=== PATIENT | female | born 1950 | race Caucasian/White ===

== ENCOUNTER 2017-06-16 09:58 | Emergency (ER) | payer MEDICARE, BC | END 2017-06-16 10:54 | disposition home or self-care (01) | LOC: SCSER 09:58 | DX: T78.40XA Allergy, unspecified, initial encounter (principal); I10 Essential (primary) hypertension; Z87.891 Personal history of nicotine dependence; Z79.899 Other long term (current) drug therapy | CPT/HCPCS: 99282 ==

== ENCOUNTER 2018-03-21 08:35 | Observation (INO) | payer MEDICARE, BC ==
--- NOTE | 2018-03-21 09:00 | CT ---
CT HEAD NONCONTRAST: Date: 03/21/18 INDICATION: Difficulty remembering names, visual disturbance. No prior comparison. FINDINGS: There is no evidence of intracranial hemorrhage, mass effect, midline shift, or ventriculomegaly. The imaged paranasal sinuses reveal minimal mucosal thickening. IMPRESSION: No acute intracranial hemorrhage or mass effect. Telephone called findings placed to ER physician, Chauncey Lawrence, at 0845 hours on 03/21/18. CODE CR. POS: OJSE
[2018-03-21 09:21] LABS: #Basophils 0.1 thou/uL (0.0-0.2); #Eosinphils 0.2 thou/uL (0.0-0.7); #Lymphocytes 3.1 thou/uL (1.20-3.40); #Monocytes 0.6 thou/uL (0.11-0.59); #Neutrophils 4.5 thou/uL (1.40-6.50); %Eosinophils 2.3 % (0.0-10.0); %Lymphocytes 36.4 % (21.0-51.0); %Monocytes 7.1 % (0.0-10.0); %Neutrophils 53.1 % (42.0-75.0); Hemoglobin 15.8 g/dL (12.0-16.0); Mean Corpuscular HGB CONC 31.8 g/dL (32.0-36.0); Mean Corpuscular Hemoglobin 30.4 pg (27.0-31.0); Mean Corpuscular Volume 95.7 fL (78.0-98.0); Mean Platelet Volume 7.9 fL (7.4-10.4); Platelet Count 219 thou/uL (130-400); RBC Distribution Width 12.5 % (11.5-14.5); Red Blood Cell (RBC) Count 5.18 mill/uL (4.20-5.40); White Blood Cell (WBC) Count 8.5 thou/uL (4.8-10.8)
[2018-03-21] MEDS ORDERED: Nitroglycerin 2% Ointment 1 INCH/1 GM Packet ONE (09:42)
[2018-03-21 09:43] LABS: Bilirubin Negative (Negative); Blood, Urine Negative (Negative); Clarity CLEAR (Clear); Glucose, Urine (Dipstick) Negative (Negative); Leukocyte Negative (Negative); Nitrite Negative (Negative); Protein, Urine (Dipstick) Negative (Neg-Trace); Specific Gravity, Urine 1.008 (1.002-1.036); Urobilinogen 0.2 mg/dL (0.2-1.0); pH, Urine 5.5 (5.0-9.0)
[2018-03-21 09:44] LABS: ALT (SGPT) 21 U/L (8-55); AST (SGOT) 22 U/L (5-34); Albumin 4.4 g/dL (3.4-4.8); Alkaline Phosphatase 74 U/L (40-150); Anion Gap 13 mmol/L (10-20); BUN (Urea Nitrogen) 18 mg/dL (9.8-20.1); Bilirubin, Total 0.3 mg/dL (0.2-1.2); Calc. Creatinine Clearance 0 mL/min (70-130); Calcium 9.5 mg/dL (7.8-10.44); Carbon Dioxide 25 mmol/L (23-31); Chloride 104 mmol/L (98-107); Estimated GFR-MDRD 76; Globulin 3.2 g/dL (2.4-3.5); Glucose 73 mg/dL (80-115); Potassium 3.6 mmol/L (3.5-5.1); Protein, Total 7.6 g/dL (6.0-8.3); Sodium 138 mmol/L (136-145)
[2018-03-21 09:48] LABS: Troponin I Less than 0.010 ng/mL (< 0.028)
--- NOTE | 2018-03-21 10:26 | RAD ---
PORTABLE CHEST 1 VIEW: Date: 03/21/18 Time: 0954 hours HISTORY: Generalized weakness, elevated blood pressure. FINDINGS: Comparison made with exam of 07/08/13. The heart size is normal. The lungs are well expanded without focal areas of consolidation, pneumotho races, or pleural effusions. IMPRESSION: No radiographic evidence of acute cardiopulmonary process. POS: C
[2018-03-21] MEDS ORDERED: Acetaminophen 500 MG TAB ONE (11:40)
--- NOTE | 2018-03-21 12:36 | HP ---
DATE OF ADMISSION: 03/21/2018 CHIEF COMPLAINT: Memory loss and visual flashing lights, rule out TIA. 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 She did not feel right. She felt funny, strange after she came to school. She dropped the phone and she was not able to recall kids' names. Her vision was fine. Quirino jewell had a headache which started in the occipital area and in the neck. She had similar episodes a few years back when she had some memory issues and numbness and tingling and since she was on cont rol pills at this time, it was stopped and everything got better. This time, she was brought to the emergency room for further evaluation of her problem. Current condition during my visit is that she is back to normal. She is able to recall everything properly and she does not have any flashing ligh ts. PAST MEDICAL HISTORY: Positive for, 1. Migraine sporadically, maybe once a year. 2. Hypertension. 3. Osteoarthritis. PAST SURGICAL HISTORY: 1. Hiatal hernia repair by Dr. Lema. 2. Tubal ligation. 3. Hysterectomy. 4. Cholecystectomy. CURRENT MEDICATIONS: Lisinopril 10 mg at bedtime, estradiol 0.5 mg tablets half a tablet at bedtime, alprazolam 0.5 mg at bedtime, calcium and magnesium over the counter. FAMILY HISTORY: She has history of hereditary brain aneurysm. She had several CAT scans done in her 50s, but she has several cousins who passed because of aneurysms, only one person out of those who w ere found to have those aneurysms is still alive. Her father had hypertension and he passed at the a ge of 86. Also, he had [place]. Her mother is still alive. She has atrial fibrillation and she is 93 ye ars old. ALLERGIES: None. SOCIAL HISTORY: She smoked when she was young, but this was long time ago. She does not drink alcoh ol, only sporadically. She does not use any illicit drugs. REVIEW OF SYSTEMS: CONSTITUTIONAL: Negative for fever and chills. EYES: Positive for flashing lights during the episode. No double vision. ENT: Negative for epistaxis and nasal congestion. CARDIOVASCULAR: Negative for chest pain and palpitations. RESPIRATORY: Negative for shortness of breath. Positive for some cough recently. She had upper res piratory tract infection/bronchitis. She was treated with Medrol Dosepak and inhalers. GENITOURINARY: Negative for hematuria and dysuria. GI: Negative for nausea and vomiting. DERM: Negative for erythema or rash. NEUROLOGIC: Positive for above. Negative for any focal deficits. PSYCHIATRIC: Negative for homicidal or suicidal ideations. HEMOLYMPHATIC: Negative for easy bruising and clotting abnormalities. PHYSICAL EXAMINATION: GENERAL: She is not in any distress during my visit. She is resting comfortably in the bed. VITAL SIGNS: Blood pressure is 166/81, pulse is 59, respiratory rate is 16, pulse oximetry is 96% on room air. HEENT: Head is atraumatic, normocephalic. Eyes are PERRLA. Sclerae nonicteric. Oral mucosa is rob[address] st. NECK: Supple. No lymphadenopathy. Thyroid is not palpable. LUNGS: Clear. HEART: S1, S2 normal, no S3, no S4, no murmur. ABDOMEN: Soft, nontender. Bowel sounds are present, no organomegaly. EXTREMITIES: No clubbing, cyanosis, or edema. NEUROLOGIC: She is alert and oriented x4. There is no any sensorimotor deficits present. Cranial n erves are intact. Extraocular movements within normal limits. Visual deluca within normal limits. Diadochokinesia is normal. LABORATORY AND X-RAY FINDINGS: Showed white count of 8.5, hemoglobin 15.8, hematocrit 49.6, platelet count is 219. The rest of CBC within normal limits. Chemistry showed only one abnormal part which is glucose which is 73. The rest is within normal limits. Urinalysis within normal limits. CT of t he brain was done without contrast, did not show any abnormalities. Also, chest x-ray was done witho ut any abnormalities, both tests were examined by me personally. Electrocardiogram showed a sinus br adycardia at 59 beats per minute with some criteria for LVH. No ST segment depression or elevation. IMPRESSION: 1. Flashing lights with episode of memory loss, transient, rule out transient ischemic attack. CT o f the brain is negative. The patient is back to her normal. She will get additional aspirin 325 mg right now. 2. Hypertension, slightly elevated blood pressure. 3. History of migraine headaches in the past, now very sporadically, maybe once a year. 4. Osteoarthritis in both knees. 5. Recent upper respiratory tract infection/bronchitis. PLAN: Admission for observation to stroke unit. Condition is fair. Activity, bed rest and bathroom privileges. IV Hep-Lock. MRI and MRA of the brain. We will continue her lisinopril, citalopram, a lprazolam. We are going to hold her estradiol. I will continue her methylprednisolone 4 mg pack. S he is prison through and the patient will be on deep venous thrombosis prophylaxis with 40 mg of sub cutaneous Lovenox every 24 hours and SCDs. She will have echocardiogram done.
[2018-03-21] MEDS ORDERED: Gadobenate Dimeglumine 529 MG/1 ML (20ML VIAL) ONE (16:34)
--- NOTE | 2018-03-21 17:24 | MRI ---
MRI OF BRAIN WITH AND WITHOUT IV CONTRAST: 03/21/18 HISTORY: Memory loss with visual disturbances. TIA. There are a few scattered punctate signal abnormalities in the subcortical white matter which are non specific and of uncertain clinical significance. The findings could potentially be related to mild chronic small vessel ischemic changes. There is no evidence of an acute infarction. No abnormal areas of enhancement are seen after the administration of intravenous contrast. The septum pellucidum and third ventricle in midline. The ventricular system is normal in size, shape and position. Mucosal thickening is seen within the right maxillary antrum as well as involving a fe w ethmoidal air cells and right frontal sinus. The orbits and remainder of the skull base have a norm al MRI appearance. IMPRESSION: No acute intracranial abnormalities demonstrated. POS: JOSE
--- NOTE | 2018-03-21 17:28 | MRI ---
NONCONTRAST MRA BRAIN WITH 3D RECONSTRUCTIONS: 03/21/18 HISTORY: TIA. Patient with memory loss and visual disturbances. FINDINGS: Distal bilateral internal carotid arteries are patent. Bilateral middle cerebral anterior cerebral ar teries are patent. The distal bilateral vertebral arteries, basilar arteries as well as posterior cer ebral arteries are patent. No branch occlusion or focal stenosis is seen. There does appear to be sli ght atherosclerotic irregularity involving the most distal branch of the right posterior cerebral art fitz. No aneurysm is seen within the limitation of the technique of this exam. IMPRESSION: No significant focal stenosis or branch occlusion is seen involving the [place] or vertebrob asilar system. There is suggestion of mild atherosclerotic irregularity involving the most distal br anch of the right posterior cerebral artery. POS: JOSE
[2018-03-21 18:04] VITALS: BMI 27.1
[2018-03-22] MEDS ORDERED: Enoxaparin Sodium 40 MG/0.4 ML SYRINGE SC SCH (09:00)
[2018-03-22] MEDS ORDERED: Lisinopril 10 MG TAB PO SCH ×2 (09:00→21:00)
[2018-03-22 11:36] VITALS: BP 144/69; TEMP 98
--- NOTE | 2018-03-22 13:52 | DIS ---
DATE OF ADMISSION: 03/21/2018 DATE OF DISCHARGE: 03/22/2018 FINAL DIAGNOSES: 1. Questionable transient ischemic attack versus migraine episode, acute cerebrovascular accident wa s ruled out. 2. Hypertension, on medications. 3. History of migraine headaches in the past. 4. Osteoarthritis. 5. Recent upper respiratory tract infection/bronchitis. 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 She did not feel right, felt funny and strange. After she came to school she dropped the phone and she was not able to recall kids' names, but her vision was fine. She had a headache which started in the occipital area and in the neck. She had similar episodes a few years back and since she has a family history of brain aneurysms she had multiple CT scans of the brain, but they did not show any abnormalities so in the emergency room, she was evaluated. Her vitals were within normal li mits. Blood pressure was slightly elevated at 166/81, but the rest was within normal limits. Her wh ite count was 8.5, hemoglobin 15.8, hematocrit 49.6, and platelet count 219. Glucose was 73, slightl y low. Urinalysis was within normal limits. CT of the brain was done without contrast and did not s how any abnormalities and chest x-ray was done. It did not show any abnormalities. Electrocardiogra m showed sinus bradycardia at 59 beats per minute with some criteria for LVH. There was not any ST s egment depression or elevation. The patient was placed on aspirin. IV Hep-Locked. She was continue d on her methylprednisolone 12 mg once a day. This was a Medrol Dosepak she was receiving for her br onchitis. She underwent MRI of the brain and MRA of the brain which did not show any significant abn ormalities. Echocardiogram showed a normal left ventricular ejection fraction at 55% -60%, normal si ze left atrium, normal left ventricle size, mild tricuspid regurgitation. There was not any thrombus in the cardiac chambers. Her blood pressure was slightly running on the high side and she was resta rted on her lisinopril, which improved her blood pressure. VITAL SIGNS: Blood pressure is 145/71, pulse is 80, temperature is 98.1, respirations 14 and pulse o ximetry 97% on room air. LUNGS: Clear. CARDIOVASCULAR: S1, S2 normal, no S3, no S4, no murmur. ABDOMEN: Soft, nontender, bowel sounds are present, no organomegaly. NEUROLOGIC: Intact. She is discharged home in good condition with recommendation to stay on low salt diet. ACTIVITY: As tolerated. The patient is going to make an appointment with Dr. Jacques, neurologist. She will call his office and set up appointment. Other medications at the time of discharge; famotidine 20 mg at bedtime, Coenzyme Q10 100 mg at bedti me, biotin 10,000 units once a day, aspirin 81 mg once a day, alprazolam 0.5 mg at bedtime p.r.n., E stradiol p.o. at bedtime, citalopram 20 mg once a day, multivitamin at bedtime, once a day. The patient was seen and examined before she is discharged and the discharge time is less than 30 min utes.
== END 2018-03-22 12:55 | disposition home or self-care (01) ==
LOC: ERS 08:35 → ERHOLD 11:44 → 2SE 14:11
PROVIDERS: ADMIT Internal Medicine; ATTEND Internal Medicine
DX: H53.8 Other visual disturbances (principal); G45.4 Transient global amnesia; G43.909 Migraine, unspecified, not intractable, without status migrainosus; M17.0 Bilateral primary osteoarthritis of knee; I10 Essential (primary) hypertension; Z87.891 Personal history of nicotine dependence; Z79.82 Long term (current) use of aspirin; Z79.899 Other long term (current) drug therapy
CPT/HCPCS: 70450; 70544; 70553; 71045; 80053; 81003; 82553; 82962; 84484; 85025; 93005; 93306; 96372; 99285; G0378 ×2; 36415; 36416; A9579; J1650

== ENCOUNTER 2018-11-05 10:49 | Emergency (ER) | payer MEDICARE, BC ==
--- NOTE | 2018-11-05 11:14 | RAD ---
CHEST 2 VIEWS: Date: 11/05/18 HISTORY: Fever, chest congestion, and productive cough for 4 days. COMPARISON: 05/02/17. FINDINGS: Heart size is normal. The lungs are clear. IMPRESSION: No acute intrathoracic disease. No evidence of pneumonia. Stable from prior study. POS: TPC
== END 2018-11-05 11:40 | disposition home or self-care (01) ==
LOC: SCSER 10:49
DX: R05 Cough (principal); I10 Essential (primary) hypertension; Z87.891 Personal history of nicotine dependence
CPT/HCPCS: 71046

== ENCOUNTER 2018-11-21 08:22 | Outpatient (CLI) | payer MEDICARE, BC ==
[2018-11-21 10:18] LABS: #Eosinphils 0.2 thou/uL (0.0-0.7); #Lymphocytes 1.9 thou/uL (1.20-3.40); #Monocytes 0.3 thou/uL (0.11-0.59); #Neutrophils 2.3 thou/uL (1.40-6.50); %Basophils 0.9 % (0.0-1.0); %Eosinophils 3.7 % (0.0-10.0); %Lymphocytes 40.6 % (21.0-51.0); %Monocytes 6.6 % (0.0-10.0); %Neutrophils 48.2 % (42.0-75.0); Hemoglobin 13.8 g/dL (12.0-16.0); Mean Corpuscular HGB CONC 31.8 g/dL (32.0-36.0); Mean Corpuscular Hemoglobin 30.9 pg (27.0-31.0); Mean Corpuscular Volume 97.1 fL (78.0-98.0); Mean Platelet Volume 8.4 fL (7.4-10.4); Platelet Count 221 thou/uL (130-400); RBC Distribution Width 12.4 % (11.5-14.5); Red Blood Cell (RBC) Count 4.48 mill/uL (4.20-5.40); White Blood Cell (WBC) Count 4.8 thou/uL (4.8-10.8)
[2018-11-21 10:22] LABS: INR-International Normal Ratio 0.9; Prothrombin Time 12.2 SEC (12.0-14.7)
[2018-11-21 10:27] LABS: Bacteria/HPF None Seen HPF (None Seen); Bilirubin Negative (Negative); Blood, Urine Negative (Negative); Clarity Clear (Clear); Glucose, Urine (Dipstick) Normal (Negative); Leukocyte Negative Leu/uL (Negative); Nitrite Negative (Negative); Protein, Urine (Dipstick) Negative (Neg-Trace); Squamous Epithelial 0-3 HPF (0-3); Urobilinogen Normal mg/dL (Less than 2); WBC/HPF 0-3 HPF (0-3)
[2018-11-21 10:38] LABS: Anion Gap 13 mmol/L (10-20); BUN (Urea Nitrogen) 13 mg/dL (9.8-20.1); Calc. Creatinine Clearance 0 mL/min (70-130); Calcium 9.2 mg/dL (7.8-10.44); Carbon Dioxide 24 mmol/L (23-31); Chloride 106 mmol/L (98-107); Estimated GFR-MDRD 85; Glucose 90 mg/dL (80-115); Potassium 4.5 mmol/L (3.5-5.1); Sodium 138 mmol/L (136-145)
--- NOTE | 2018-11-21 16:17 | EKG ---
Test Reason : Blood Pressure : / mmHG Vent. Rate : 056 BPM Atrial Rate : 056 BPM P-R Int : 182 ms QRS Dur : 096 ms QT Int : 426 ms P-R-T Axes : 046 -04 013 degrees QTc Int : 411 ms Sinus bradycardia Voltage criteria for left ventricular hypertrophy Abnormal ECG Confirmed by TAMEKA DAWSON ([id number]) on 11/21/2018 4:17:23 PM Referred By: BISHOP Confirmed By:TAMEKA DAWSON
== END 2018-11-21 08:23 | disposition home or self-care (01) ==
LOC: LABBT 08:22
PROVIDERS: ATTEND Orthopaedic Surgery
DX: Z01.818 Encounter for other preprocedural examination (principal); M17.11 Unilateral primary osteoarthritis, right knee
CPT/HCPCS: 80048; 81001; 85025; 85610; 87081; 87086; 93005; 93010

== ENCOUNTER 2018-11-27 05:55 | Inpatient (IN) | payer MEDICARE, BC ==
[2018-11-21 08:38] VITALS: BMI 26.3
--- NOTE | 2018-11-26 10:01 | HP ---
HISTORY OF PRESENT ILLNESS: The patient is a -[id number] female with a long history of bilateral knee pain, right greater than left. She has pain with certain motions and walking. She has had progressive symptoms despite rest, restriction of activities, anti-inflammatory medications, and cortisone injections. The pain is now interfering with day-to-day activities including walking, getting dressed, and working at an elementary school. She has had difficulty tolerating NSAIDs and had bleeding from ibuprofen. PAST MEDICAL HISTORY: The patient is otherwise in good health. She also has some arthritic pain in her right hip and also her left knee. Her right knee is her primary complaint. She has a history of hormone replacement, depression, anxiety, hypertension. CURRENT MEDICATIONS: 1. Aspirin 81 mg. 2. Ketorolac p.r.n. headaches. 3. Alprazolam. 4. Biotin. 5. Citalopram. 6. Lisinopril. 7. Calcium. 8. Magnesium. ALLERGIES: SHE IS ALLERGIC TO BENZONATATE. FAMILY HISTORY: Otherwise unremarkable. SOCIAL HISTORY: Otherwise unremarkable. REVIEW OF SYSTEMS: Otherwise unremarkable. PHYSICAL EXAMINATION: GENERAL: Healthy female. HEENT: Unremarkable. NECK: Supple. CHEST: Clear. HEART: Regular rate and rhythm. ABDOMEN: Soft. Nontender. PELVIC: Deferred. RECTAL: Deferred. BREASTS: Deferred. EXTREMITIES: Pertinent findings related to the right knee. There is puffiness, but no definite effusion or erythema. There is mild valgus deformity. There is tenderness with medial and lateral joint lines. Range of motion 0 to 120 degrees. There is pain with further flexion and pain with full extension. There is mild crepitus with range of motion. NEUROVASCULAR: Intact. Palpable distal pulses. There is a right antalgic gait. There is mild pain at extremes of right hip motion. No definite tenderness. DIAGNOSTIC STUDIES: X-rays of the right knee reveal lateral joint space narrowing with minimal joint space remaining and progression from previous x-rays. X-rays of the right hip reveal [id number] [id number], but there is still joint space remaining. IMPRESSION: 1. Degenerative arthritis, right knee. 2. History of hypertension. 3. History of depression and anxiety. PLAN: Right total knee replacement. The nature of the surgery, length of recovery, potential complications such as infection, loss of motion, incomplete relief, delayed wound healing, neurovascular injury, thromboembolic phenomena, possible transfusion have been discussed in detail. Job ID: [id number]
[2018-11-27] MEDS ORDERED: Tranexamic Acid 1,000 MG/10 ML VIAL ONE ×2 (06:15→09:31)
[2018-11-27] MEDS ORDERED: Sodium Chloride 0.9% 100 ML ONE (06:15)
[2018-11-27] MEDS ORDERED: Scopolamine 1.5 mg/72 hour Patch ONE (06:37)
[2018-11-27] MEDS ORDERED: Fentanyl 100 MCG/2 ML VIAL ONE (06:37)
[2018-11-27] MEDS ORDERED: Midazolam HCl 2 mg/2 ml Vial ONE (06:37)
[2018-11-27] MEDS ORDERED: traMADol HCl 50 MG TAB PO PRN ×3 (07:18→09:53)
[2018-11-27] MEDS ORDERED: Promethazine HCl 25 MG/ML VIAL IM PRN ×2 (07:18→08:04)
[2018-11-27] MEDS ORDERED: Ropivacaine HCl/PF 250 ML in Premix Bag 1 BAG NERVE BLCK SCH (07:18)
[2018-11-27] MEDS ORDERED: Zolpidem Tartrate 5 MG TAB PO PRN ×2 (07:18→09:53)
[2018-11-27] MEDS ORDERED: HYDROcodone/Acetaminophen 10/325 mg Tablet PO PRN ×4 (07:18→09:53)
[2018-11-27] MEDS ORDERED: Bupivacaine/Epinephrine 0.25% 30 ML VIAL ONE (07:23)
[2018-11-27] MEDS ORDERED: Ondansetron HCl/PF 4 MG/2 ML Vial IVP PRN (08:04)
[2018-11-27] MEDS ORDERED: Promethazine HCl 25 MG/ML VIAL SLOW IVP PRN ×2 (08:04→09:53)
[2018-11-27] MEDS ORDERED: Tranexamic Acid 1,000 MG in Sodium Chloride 0.9% 100 ML IVPB SCH ×2 (09:15→12:00)
[2018-11-27] MEDS ORDERED: Ondansetron PF 4 MG/2 ML Vial IVP PRN (09:53)
[2018-11-27] MEDS ORDERED: Acetaminophen 325 MG TAB PO PRN (09:53)
[2018-11-27] MEDS ORDERED: Fentanyl 100 MCG/2 ML VIAL SLOW IVP PRN ×2 (09:53)
[2018-11-27] MEDS ORDERED: Famotidine 20 MG TAB PO PRN (09:53)
--- NOTE | 2018-11-27 10:06 | RAD ---
RIGHT KNEE TWO VIEWS: HISTORY: Postop total knee arthroplasty. FINDINGS: There are recent postop changes of total knee arthroplasty in good position and alignment. Soft tiss ue air is present. POS: H
--- NOTE | 2018-11-27 10:13 | OP ---
DATE OF PROCEDURE: 11/27/2018 PREOPERATIVE DIAGNOSIS: End-stage tricompartmental osteoarthritis, right knee. POSTOPERATIVE DIAGNOSIS: End-stage tricompartmental osteoarthritis, right knee. PROCEDURE PERFORMED: Cemented cruciate-sparing computer-assisted navigated right total knee arthroplasty. SURGEON: Jomar Romero MD FACILITIES PROJECT MANAGER: Nirmal Mays PA-C ANESTHESIA: General via LMA augmented with indwelling adductor canal block with a single-shot anterior sciatic block. COMPONENTS USED: [employer] Triathlon cemented cruciate sparing size 4 femoral component with a size 3 cemented primary tibial base plate, 9 mm polyethylene fixed bearing insert, and A29 patella button. FINDINGS: End-stage severe degenerative tricompartmental disease, [id number] arthrosis, particular osteophyte formation, large serous effusion, hypertrophic synovium, and changes consistent with chronic degenerative genu valgum. TOURNIQUET TIME: 65 minutes at 250 mmHg. ESTIMATED BLOOD LOSS: 100. INPUT: 1200 mL crystalloid. OUTPUT: 150 mL of clear yellow urine. DRAINS: None. SPECIMENS: None. COMPLICATIONS: None. COUNTS: Correct. INDICATION FOR SURGERY: Carmen is a 68-year-old white female, who has had progressive right knee pain and problems with standing and walking for the last 5 to 7 years. She has failed conservative management, elected to proceed with total knee arthroplasty as definitive treatment of her pain. PROCEDURE IN DETAIL: After informed consent was obtained in the preoperative holding area, the patient was taken to the operative suite where general anesthesia was induced. Once adequate level of general anesthesia was obtained, the patient was positioned and a well-padded tourniquet was placed around the right proximal thigh. The right lower extremity was then prepped and draped in the usual sterile fashion. Prior to exsanguination, a time-out was called and all members of the surgical team agreed upon site, surgeon, and patient. The extremity was then exsanguinated and the tourniquet was raised. A midline longitudinal incision was then made directly over the patella extending 2 fingerbreadths above the superior pole of the patella and 2 fingerbreadths inferior to the inferior patellar pole of the patella. Deeper subcutaneous layers were dissected sharply and local bleeding was controlled with Bovie electrocautery. A quad tendon longitudinal split was then made sharply and a median parapatellar arthrotomy was carried out both sharp and with Bovie electrocautery, carried down to 1 fingerbreadth medial to the tibial tubercle. The knee was then placed into flexion and the patella was everted nicely, and a copious fat pad ectomy was performed, allowing for greater exposure of the tibia. The computer-assisted distal femoral fiducial was then placed and pinned firmly, and the distal femoral cutting guide was pinned firmly into place. The oscillating saw was then used to remove the appropriate amount of bone. The 4-in-1 cutting block was then placed on the distal femur and the oscillating saw was used to remove the appropriate amount of bone off the anterior, posterior, and chamfer cuts. After completion of bone cuts, the anterior cruciate ligament was resected sharply and the posterior cruciate ligament retractor was placed and the tibia was subluxed for better exposure. Partial meniscectomies were carried out, and the tibial computer-assisted fiducial was pinned, and the cutting guide was placed. Oscillating saw was then used to remove the bone, with Hohmann retractors used to take care and protect the collateral ligaments. After the tibial resection was performed, a laminar milk drying machine operator was placed in between the freshened bone cuts. The knee placed at 90 degrees and further bilateral meniscectomies were carried out, and the curved osteotome and curettage were used to remove any excess bone spurs in the posterior compartment. The trial femoral component, tibial baseplate were placed with the appropriate polyethylene trial insert with an appropriate polyethylene spacer and patellar button. The knee was taken through full range of motion with flexion and extension from 0 to 90 degrees and patellar broach squarely in the trochlea without any squinting or subluxation noted. The knee was also stable to varus and valgus stressing at 0, 15, 45, and 90 degrees of flexion. The drawer was negative. All trial components were then removed and the keel punch was used to provide the appropriate defect in the tibia with a mallet. The freshened bone cuts were copiously irrigated with pulsatile lavage of about 1.5 L to remove all excess debris. The freshened bone cuts were then dried with suction and lap sponge. The knee was placed in flexion and retractors were placed to provide access to all bone cuts. Tobramycin-impregnated methyl methacrylate cement was then placed on the freshened bone cuts and implants which were malleted firmly into place. Curettage and [place] elevators were used to remove any excess bone cement. The knee was placed into full extension and the patellar button was placed under compression, and the cement was allowed to cure. Once completed, the components were again taken through full range of motion and copious irrigation of the knee was carried out with another liter of normal saline. All components were inspected fully with full range of motion and varus and valgus stressing. There was no laxity noted and full extension was observed clinically. Primary closure was accomplished with #2 interrupted Vicryl stitch of the arthrotomy defect. This was oversewn with a #2 running Quill barbed stitch. The subcutaneous layer was then closed with a running 0 barbed Monocryl stitch and skin closure accomplished with a running subcuticular 3-0 Monocryl barbed Quill stitch and augmented with cement on the skin. Tourniquet was lowered. Good spontaneous return of distal pulses was noted clinically and a sterile dressing was applied to the incision. The procedure was terminated without any complications. The patient was awakened in the operative suite and taken to the recovery room in stable condition. Dictated by Nirmal Mays PA-C, for Jomar Romero MD. Job ID: [id number]
[2018-11-27] MEDS ORDERED: Ropivacaine 0.5% HCl/PF (150 MG/30 ML VIAL) ONE (11:14)
[2018-11-27] MEDS ORDERED: Ropivacaine 0.2% HCl/PF (40 MG/20 ML VIAL) ONE (11:14)
[2018-11-27] MEDS ORDERED: Vancomycin HCl 1 GM in Premix Bag 1 BAG IVPB SCH (12:00)
[2018-11-27] MEDS ORDERED: Ketorolac Tromethamine 30 MG/ML VIAL IVP SCH (12:00)
[2018-11-27] MEDS ORDERED: Ketorolac Tromethamine 30 MG/ML VIAL ONE (12:05)
[2018-11-27] MEDS ORDERED: Ondansetron PF 4 MG/2 ML Vial ONE (12:05)
[2018-11-27] MEDS ORDERED: PROPOFOL 200 MG/20 ML VIAL ONE (12:05)
[2018-11-27] MEDS ORDERED: Lidocaine 1% PF 5 ML VIAL ONE (12:05)
[2018-11-27] MEDS ORDERED: ePHEDrine 50 MG/ML VIAL ONE (12:05)
[2018-11-27] MEDS: CEFAZOLIN 2 GM in Premix Bag 1 BAG IVPB SCH (16:16)
[2018-11-27] MEDS: Fentanyl 100 MCG/2 ML VIAL IV PRN ×2 (16:17→21:02)
[2018-11-27] MEDS: Ondansetron PF 4 MG/2 ML Vial IVP PRN (16:52)
[2018-11-27] MEDS: Ketorolac Tromethamine 30 MG/ML VIAL IVP SCH ×2 (16:56→16:58)
[2018-11-27] MEDS: Sodium Chloride 0.9% 1,000 ML IV SCH ×2 (16:58→20:08)
[2018-11-27] MEDS: Citalopram 20 MG TAB PO SCH (20:01)
[2018-11-27] MEDS: Senokot S 8.6-50 MG TAB PO SCH (20:01)
[2018-11-27] MEDS: Aspirin 81 mg Enteric Coated Tablet PO SCH (20:04)
[2018-11-27] MEDS ORDERED: Morphine Sulfate 100 MG in Dextrose 5% in Water 98 ML IV SCH (22:28)
[2018-11-27] MEDS ORDERED: Morphine CADD 100 ML IVPB SCH (22:30)
[2018-11-28] MEDS: Ketorolac Tromethamine 30 MG/ML VIAL IVP SCH ×5 (00:12→23:48)
[2018-11-28] MEDS: CEFAZOLIN 2 GM in Premix Bag 1 BAG IVPB SCH (00:13)
[2018-11-28] MEDS: Sodium Chloride 0.9% 1,000 ML IV SCH ×2 (00:17→15:37)
[2018-11-28] MEDS: Ondansetron PF 4 MG/2 ML Vial IVP PRN ×3 (00:26→15:31)
--- NOTE | 2018-11-28 04:24 | CON ---
DATE OF CONSULTATION: 11/27/2018 TIME OF EVALUATION: 6:00 p.m. REASON FOR CONSULTATION: Medical management. HISTORY OF PRESENT ILLNESS: The patient is a very pleasant 68-year-old female with past medical history significant for severe [id number] osteoarthritis of her right knee, hypertension, anxiety and depression, who presented to the hospital for elective total right knee arthroplasty with Dr. Romero. She underwent successful procedure today. She was seen resting comfortably in her bed postoperatively. She has ambulated today already since her surgery. She has eaten dinner. She has no nausea or vomiting at this time. Her pain is well controlled. She has no complaints at this time. REVIEW OF SYSTEMS: A 12-point review of systems is performed and is negative. PAST MEDICAL HISTORY: The patient has largely been in good health. She has history of hypertension, osteoarthritis, depression, and anxiety. PAST SURGICAL HISTORY: Hysterectomy, cholecystectomy, hiatal hernia repair with Dr. Lema. HOME MEDICATIONS: 1. Aspirin 81 mg daily. 2. Biotin 25 mcg daily. 3. Calcium vitamin D3 supplement one tablet daily. 4. Citalopram 20 mg p.o. at bedtime. 5. Estradiol 0.5 mg tablet p.o. at bedtime. 6. Famotidine 20 mg p.o. as needed. 7. Lisinopril 10 mg tablet, two tablets daily. 8. Claritin 10 mg p.o. daily. 9. Quetiapine 0.25 mg p.o. at bedtime. ALLERGIES: ADHESIVE. FAMILY HISTORY: Noncontributory. SOCIAL HISTORY: She is a nonsmoker. She drinks alcohol occasionally. PHYSICAL EXAMINATION: GENERAL: The patient is well appearing, in no acute distress, resting comfortably. HEENT: Head is atraumatic and normocephalic. Mucous membranes are moist. NECK: Trachea is midline. No JVD. CV: S1 and S2, regular rate and rhythm. No appreciable murmurs, rubs, or gallops. LUNGS: Regular respiratory rate and pattern. ABDOMEN: Positive bowel sounds. EXTREMITIES: No edema. Right knee is wrapped with ice pack. ASSESSMENT: 1. Right total knee arthroplasty with Dr. Romero. 2. Hypertension. 3. Anxiety and depression. PLAN: We will continue the patient's antihypertensives, along with the rest of her home medications including citalopram and Seroquel. Continue physical therapy and prophylactic antibiotics per Dr. Romero's team. We will continue pain control and antiemetics as needed. We will follow along. Thank you for the consult. Job ID: [id number]
[2018-11-28 06:55] LABS: Hemoglobin 12.7 g/dL (12.0-16.0); Mean Corpuscular HGB CONC 30.5 g/dL (32.0-36.0); Mean Corpuscular Volume 98.3 fL (78.0-98.0); Mean Platelet Volume 8.3 fL (7.4-10.4); Platelet Count 177 thou/uL (130-400); RBC Distribution Width 12.3 % (11.5-14.5); Red Blood Cell (RBC) Count 4.22 mill/uL (4.20-5.40); White Blood Cell (WBC) Count 4.5 thou/uL (4.8-10.8)
[2018-11-28] MEDS: Calcium Carbonate + Vit D 1 TAB PO SCH (08:04)
[2018-11-28] MEDS: Loratadine 10 MG TAB PO SCH (08:04)
[2018-11-28] MEDS: Multivitamin W/ Minerals 1 TAB PO SCH (08:04)
[2018-11-28] MEDS: Senokot S 8.6-50 MG TAB PO SCH ×2 (08:04→20:52)
[2018-11-28] MEDS: Aspirin 81 mg Enteric Coated Tablet PO SCH ×2 (08:04→20:52)
[2018-11-28] MEDS: Estradiol 1 MG TAB PO SCH (08:04)
[2018-11-28] MEDS: Prenatal Vitamin 1 TAB PO SCH (08:04)
[2018-11-28] MEDS: Lisinopril 10 MG TAB PO SCH (08:05)
--- NOTE | 2018-11-28 08:24 | PRG ---
DATE OF SERVICE: 11/28/2018 SUBJECTIVE: Carmen is a 68-year-old female postop day 1 from a right total knee arthroplasty. Last night, it was very difficult for her in terms of pain. Apparently, she did not have a good block and she admits to discomfort from proximal thigh down to the ankle. The Pain Service placed a morphine HARNESS [employer]TER, which has been working well at this point. OBJECTIVE: VITAL SIGNS: Temperature 98.6, pulse 70, respiratory rate 16, and blood pressure is 99/59. NEUROLOGIC: She is alert and oriented to person, place, time, and situation. Nonfocal. She is responsive and appropriate with examiner. Her incision is clean. No erythema. No strike through. She is neurovascularly intact in the right lower extremity with good dorsiflexion, inversion, and eversion. No swelling. No malrotation is noted. LABORATORY DATA: Hemoglobin and hematocrit are pending. IMPRESSION: A 68-year-old female, postop day 1, right total knee arthroplasty. PLAN: Reestablish pain control today. Continue current care and give consideration to discharge on Sunday to home as the patient strongly desired to go home. Job ID: [id number]
[2018-11-28] MEDS: Acetaminophen 500 MG TAB PO SCH ×2 (17:36→23:49)
--- NOTE | 2018-11-28 17:46 | PDOC.PN ---
- Subjective Encounter Start Date: 11/28/18 Encounter Start Time: 17:45 Pt seen for followup re: hypertension. c/o right knee pain. - Objective Vital Signs & Weight: Vital Signs (12 hours) Temp Pulse Resp BP BP BP Pulse Ox 11/28/18 15:00 98.6 F 76 16 128/67 94 L 11/28/18 11:30 97.6 F 66 16 113/64 93 L 11/28/18 08:05 94/56 L 11/28/18 07:20 98.6 F 70 16 99/59 L 96 11/28/18 07:16 96 Weight Admit Weight 168 lb Weight 168 lb I&O: 11/27/18 11/28/18 11/29/18 06:59 06:59 06:59 Intake Total 2000 Output Total 75 1075 Balance -75 925 Result Diagrams: 11/28/18 06:36 Phys Exam - Physical Examination Constitutional: NAD HEENT: moist MMs Neck: supple Respiratory: clear to auscultation bilateral Cardiovascular: RRR Gastrointestinal: soft s/p R knee surgery Neurological: moves all 4 limbs Psychiatric: normal affect Dx/Plan (1) HTN (hypertension) Code(s): I10 - ESSENTIAL (PRIMARY) HYPERTENSION Status: Chronic Comment: controlled, continue lisinopril (2) Anxiety and depression Code(s): F41.9 - ANXIETY DISORDER, UNSPECIFIED; F32.9 - MAJOR DEPRESSIVE DISORDER, SINGLE EPISODE, UNSPECIFIED Status: Chronic Comment: moderate, stable, continue Celexa (3) Arthritis Code(s): M19.90 - UNSPECIFIED OSTEOARTHRITIS, UNSPECIFIED SITE Status: Chronic Comment: s/p right knee surgery - Plan * . Review of Systems - Review of Systems Cardiovascular: negative: chest pain, palpitations, orthopnea, paroxysmal nocturnal dyspnea, edema, light headedness Gastrointestinal: negative: Nausea, Vomiting, Abdominal Pain, Diarrhea, Constipation, Melena, Hematochezia Musculoskeletal: Other (knee pain) - Medications/Allergies Allergies/Adverse Reactions: Allergies Allergy/AdvReac Type Severity Reaction Status Date / Time adhesive Allergy Intermediate Verified 11/27/18 16:32 Medications: Current Medications Acetaminophen (Tylenol) 1,000 mg PO Q6HR [facility] Stop: 11/30/18 12:01 Last Admin: 11/28/18 17:36 Dose: 1,000 mg Acetaminophen (Tylenol) 650 mg PO Q4H PRN PRN Reason: Headache/Fever or Pain Aspirin (Ecotrin) 81 mg PO BID [facility] Last Admin: 11/28/18 08:04 Dose: 81 mg Calcium/Vitamin D (Caltrate 600 + Vit D) 1 tab PO DAILY [facility] Last Admin: 11/28/18 08:04 Dose: 1 tab Citalopram Hydrobromide (Celexa) 20 mg PO HS [facility] Last Admin: 11/27/18 20:01 Dose: 20 mg Diphenhydramine HCl (Benadryl) 25 mg PO Q6H PRN PRN Reason: Itching Estradiol (Estrace) 0.5 mg PO DAILY [facility] Last Admin: 11/28/18 08:04 Dose: 0.5 mg Famotidine (Pepcid) 20 mg PO HS PRN PRN Reason: GERD Last Admin: 11/28/18 00:26 Dose: 20 mg Ropivacaine 250 ml/ Device 250 mls @ 0 mls/hr NERVE BLCK INF [facility] Last Admin: 11/28/18 12:47 Dose: 250 mls Sodium Chloride (Normal Saline 0.9%) 1,000 mls @ 100 mls/hr IV .Q10H [facility] Last Admin: 11/28/18 15:37 Dose: 1,000 mls Morphine Sulfate 100 mg/ (Dextrose/Water) 100 mls @ 0 mls/hr IV INF [facility] Last Admin: 11/27/18 23:10 Dose: 100 mls Iron/Minerals/Multivitamins (Theragran M) 1 tab PO DAILY [facility] Last Admin: 11/28/18 08:04 Dose: 1 tab Ketorolac Tromethamine (Toradol) 15 mg IVP Q6HR [facility] Stop: 11/29/18 12:01 Last Admin: 11/28/18 17:35 Dose: 15 mg Lisinopril (Zestril) 20 mg PO DAILY [facility] Last Admin: 11/28/18 08:05 Dose: Not Given Loratadine (Claritin) 10 mg PO DAILY [facility] Last Admin: 11/28/18 08:04 Dose: 10 mg Ondansetron HCl (Zofran) 4 mg IVP Q6H PRN PRN Reason: Nausea/Vomiting Last Admin: 11/28/18 15:31 Dose: 4 mg Ondansetron HCl (Zofran) 4 mg IVP Q6H PRN PRN Reason: Nausea/Vomiting Multivit/Folic Acid/Iron ( Vitamin) 1 tab PO DAILY [facility] Last Admin: 11/28/18 08:04 Dose: 1 tab Promethazine HCl (Phenergan) 12.5 mg IM Q4H PRN PRN Reason: Nausea Promethazine HCl (Phenergan) 12.5 mg SLOW IVP Q4H PRN PRN Reason: Nausea/Vomiting Quetiapine Fumarate (Seroquel) 6.25 mg PO HS [facility] Last Admin: 11/27/18 20:01 Dose: 6.25 mg Senna/Docusate Sodium (Senokot S) 2 tab PO BID [facility] Last Admin: 11/28/18 08:04 Dose: 2 tab Sodium Chloride (Flush - Normal Saline) 10 ml IVF Q12HR [facility] Last Admin: 11/28/18 08:06 Dose: Not Given Sodium Chloride (Flush - Normal Saline) 10 ml IVF PRN PRN PRN Reason: Saline Flush Sodium Chloride (Flush - Normal Saline) 10 ml IVF PRN PRN PRN Reason: Saline Flush
[2018-11-28] MEDS: Citalopram 20 MG TAB PO SCH (20:52)
[2018-11-28] MEDS: diphenhydrAMINE 25 MG CAP PO PRN (20:53)
[2018-11-29] MEDS: Sodium Chloride 0.9% 1,000 ML IV SCH ×3 (02:18→21:16)
[2018-11-29] MEDS: Acetaminophen 500 MG TAB PO SCH ×4 (05:30→23:03)
[2018-11-29] MEDS: Ketorolac Tromethamine 30 MG/ML VIAL IVP SCH ×2 (05:31→12:31)
[2018-11-29] MEDS: Senokot S 8.6-50 MG TAB PO SCH ×2 (09:34→21:02)
[2018-11-29] MEDS: Calcium Carbonate + Vit D 1 TAB PO SCH (09:34)
[2018-11-29] MEDS: Prenatal Vitamin 1 TAB PO SCH (09:35)
[2018-11-29] MEDS: Lisinopril 10 MG TAB PO SCH (09:35)
[2018-11-29] MEDS: Loratadine 10 MG TAB PO SCH (09:36)
[2018-11-29] MEDS: Estradiol 1 MG TAB PO SCH (09:36)
[2018-11-29] MEDS: Multivitamin W/ Minerals 1 TAB PO SCH (09:37)
[2018-11-29] MEDS: Aspirin 81 mg Enteric Coated Tablet PO SCH ×2 (09:37→21:02)
[2018-11-29] MEDS: diphenhydrAMINE 25 MG CAP PO PRN (09:45)
[2018-11-29] MEDS: Ondansetron PF 4 MG/2 ML Vial IVP PRN ×2 (09:45→23:03)
[2018-11-29] MEDS ORDERED: traMADol HCl 50 MG TAB PO PRN (10:48)
--- NOTE | 2018-11-29 17:13 | PDOC.PN ---
- Subjective Encounter Start Date: 11/29/18 Encounter Start Time: 09:20 Pt seen for followup re; hypertension. No complaints today. - Objective Vital Signs & Weight: Vital Signs (12 hours) Temp Pulse Resp BP BP BP BP 11/29/18 16:06 154/64 H 11/29/18 15:17 97.6 F 72 16 123/66 11/29/18 11:55 98.3 F 72 16 112/71 11/29/18 09:35 118/69 11/29/18 08:50 11/29/18 07:35 98.9 F 75 16 118/69 Pulse Ox 11/29/18 16:06 11/29/18 15:17 96 11/29/18 11:55 97 11/29/18 09:35 11/29/18 08:50 95 11/29/18 07:35 95 Weight Admit Weight 168 lb Weight 168 lb I&O: 11/28/18 11/29/18 11/30/18 06:59 06:59 06:59 Intake Total 4885 Output Total 75 1075 Balance -75 3810 Result Diagrams: 11/28/18 06:36 Phys Exam - Physical Examination Constitutional: NAD HEENT: moist MMs Neck: supple Respiratory: clear to auscultation bilateral Cardiovascular: RRR s/p R knee surgery Neurological: moves all 4 limbs Psychiatric: normal affect Dx/Plan (1) HTN (hypertension) Code(s): I10 - ESSENTIAL (PRIMARY) HYPERTENSION Status: Chronic Comment: controlled (2) Anxiety and depression Code(s): F41.9 - ANXIETY DISORDER, UNSPECIFIED; F32.9 - MAJOR DEPRESSIVE DISORDER, SINGLE EPISODE, UNSPECIFIED Status: Chronic Comment: moderate, stable (3) Arthritis Code(s): M19.90 - UNSPECIFIED OSTEOARTHRITIS, UNSPECIFIED SITE Status: Chronic Comment: s/p right knee surgery - Plan plan discussed w/ family, PT/OT, out of bed/ambulate * . Review of Systems - Review of Systems Constitutional: negative: fever, chills, sweats, weakness, malaise Cardiovascular: negative: chest pain, palpitations, orthopnea, paroxysmal nocturnal dyspnea, edema, light headedness - Medications/Allergies Allergies/Adverse Reactions: Allergies Allergy/AdvReac Type Severity Reaction Status Date / Time adhesive Allergy Intermediate Verified 11/27/18 16:32 Medications: Current Medications Acetaminophen (Tylenol) 1,000 mg PO Q6HR [facility] Stop: 11/30/18 12:01 Last Admin: 11/29/18 12:31 Dose: 1,000 mg Acetaminophen (Tylenol) 1,000 mg PO Q6H PRN PRN Reason: Headache/Fever or Pain Aspirin (Ecotrin) 81 mg PO BID [facility] Last Admin: 11/29/18 09:37 Dose: 81 mg Calcium/Vitamin D (Caltrate 600 + Vit D) 1 tab PO DAILY [facility] Last Admin: 11/29/18 09:34 Dose: 1 tab Citalopram Hydrobromide (Celexa) 20 mg PO HS [facility] Last Admin: 11/28/18 20:52 Dose: 20 mg Diphenhydramine HCl (Benadryl) 25 mg PO Q6H PRN PRN Reason: Itching Last Admin: 11/29/18 09:45 Dose: 25 mg Estradiol (Estrace) 0.5 mg PO DAILY [facility] Last Admin: 11/29/18 09:36 Dose: 0.5 mg Famotidine (Pepcid) 20 mg PO HS PRN PRN Reason: GERD Last Admin: 11/28/18 00:26 Dose: 20 mg Ropivacaine 250 ml/ Device 250 mls @ 0 mls/hr NERVE BLCK INF [facility] Last Admin: 11/28/18 12:47 Dose: 250 mls Sodium Chloride (Normal Saline 0.9%) 1,000 mls @ 100 mls/hr IV .Q10H [facility] Last Admin: 11/29/18 10:42 Dose: Not Given Iron/Minerals/Multivitamins (Theragran M) 1 tab PO DAILY [facility] Last Admin: 11/29/18 09:37 Dose: 1 tab Lisinopril (Zestril) 20 mg PO DAILY [facility] Last Admin: 11/29/18 09:35 Dose: 20 mg Loratadine (Claritin) 10 mg PO DAILY [facility] Last Admin: 11/29/18 09:36 Dose: 10 mg Ondansetron HCl (Zofran) 4 mg IVP Q6H PRN PRN Reason: Nausea/Vomiting Last Admin: 11/29/18 09:45 Dose: 4 mg Ondansetron HCl (Zofran) 4 mg IVP Q6H PRN PRN Reason: Nausea/Vomiting Multivit/Folic Acid/Iron ( Vitamin) 1 tab PO DAILY [facility] Last Admin: 11/29/18 09:35 Dose: 1 tab Promethazine HCl (Phenergan) 12.5 mg IM Q4H PRN PRN Reason: Nausea Promethazine HCl (Phenergan) 12.5 mg SLOW IVP Q4H PRN PRN Reason: Nausea/Vomiting Quetiapine Fumarate (Seroquel) 6.25 mg PO HS [facility] Last Admin: 11/28/18 20:52 Dose: 6.25 mg Senna/Docusate Sodium (Senokot S) 2 tab PO BID [facility] Last Admin: 11/29/18 09:34 Dose: 2 tab Sodium Chloride (Flush - Normal Saline) 10 ml IVF Q12HR [facility] Last Admin: 11/29/18 09:38 Dose: Not Given Sodium Chloride (Flush - Normal Saline) 10 ml IVF PRN PRN PRN Reason: Saline Flush Sodium Chloride (Flush - Normal Saline) 10 ml IVF PRN PRN PRN Reason: Saline Flush Tramadol HCl (Ultram) 100 mg PO Q6H PRN PRN Reason: Pain
[2018-11-29] MEDS: Citalopram 20 MG TAB PO SCH (21:02)
--- NOTE | 2018-11-29 23:17 | ULT ---
Right lower extremity venous Doppler ultrasound 11/29/2018 COMPARISON: None HISTORY: Pain, recent knee surgery, assess for DVT TECHNIQUE: Multiplanar grayscale sonographic imaging venous structures right lower extremity obtained with color flow and spectral analysis FINDINGS: Right common femoral vein, greater saphenous vein, profunda femoral vein, femoral vein, pop liteal vein, and posterior tibial vein are patent. Normal blood flow, augmentation, and compression within the deep venous system. No evidence for DVT. IMPRESSION: No evidence for deep venous thrombosis of the right lower extremity.
[2018-11-30] MEDS: Acetaminophen 500 MG TAB PO SCH ×2 (06:46→12:03)
[2018-11-30] MEDS: Calcium Carbonate + Vit D 1 TAB PO SCH (09:43)
[2018-11-30] MEDS: Multivitamin W/ Minerals 1 TAB PO SCH (09:43)
[2018-11-30] MEDS: Loratadine 10 MG TAB PO SCH (09:43)
[2018-11-30] MEDS: Prenatal Vitamin 1 TAB PO SCH (09:43)
[2018-11-30] MEDS: Estradiol 1 MG TAB PO SCH (09:43)
[2018-11-30] MEDS: Aspirin 81 mg Enteric Coated Tablet PO SCH (09:43)
[2018-11-30] MEDS: Senokot S 8.6-50 MG TAB PO SCH (09:44)
[2018-11-30] MEDS: Lisinopril 10 MG TAB PO SCH (09:45)
[2018-11-30] MEDS: Sodium Chloride 0.9% 1,000 ML IV SCH (09:46)
[2018-11-30 11:28] VITALS: BP 149/60; TEMP 98.5
[2018-11-30] MEDS ORDERED: Acetaminophen 500 MG TAB PO PRN (12:00)
[2018-11-30] MEDS ORDERED: Acetaminophen 325 MG TAB PO PRN (18:00)
== END 2018-11-30 16:20 | disposition home health service (06) | DRG 470 ==
LOC: SDC 05:55 → SJJU 14:23
PROVIDERS: ADMIT Orthopaedic Surgery; ATTEND Orthopaedic Surgery
PROC: 0SRC0J9 Replacement of Right Knee Joint with Synthetic Substitute, Cemented, Open Approach (ICD-10-PCS; principal; 2018-11-27)
PROC: 8E0YXBZ Computer Assisted Procedure of Lower Extremity (ICD-10-PCS; 2018-11-27)
DX: M17.11 Unilateral primary osteoarthritis, right knee (principal); I10 Essential (primary) hypertension; F41.9 Anxiety disorder, unspecified; F32.9 Major depressive disorder, single episode, unspecified; Z90.710 Acquired absence of both cervix and uterus; Z90.49 Acquired absence of other specified parts of digestive tract; Z88.8 Allergy status to other drugs, medicaments and biological substances
CPT/HCPCS: 36415; 85027; C1713; C1776; J0690; J1885; J2001; J2250; J2274; J2405; J2704; J2795; J3010; J3370; J3490; J7070; Q0163

== ENCOUNTER 2019-03-16 14:54 | Emergency (ER) | payer MEDICARE, BC ==
--- NOTE | 2019-03-16 15:34 | RAD ---
XR Foot Rt 3 View STANDARD History: Pain Comparison: None. Findings: Lisfranc interval is maintained. Moderate degenerative changes of the great toe metatarsal phalangeal joint. Fragmentation of the hallux sesamoids. Moderate plantar calcaneal spur. Os peroneum is present. Mild degenerative disease of the calcaneal cuboid joint. Impression: Chronic findings. No acute osseous abnormality.
== END 2019-03-16 15:40 | disposition home or self-care (01) ==
LOC: SCSER 14:54
DX: L03.116 Cellulitis of left lower limb (principal); I10 Essential (primary) hypertension; F41.9 Anxiety disorder, unspecified; Z87.891 Personal history of nicotine dependence; Z79.899 Other long term (current) drug therapy

== ENCOUNTER 2019-04-04 14:31 | Outpatient (CLI) | payer MEDICARE, BC ==
--- NOTE | 2019-04-04 15:52 | MMO ---
Bilateral MAMMO Bilat Screen [facility]. CLINICAL HISTORY: Patient is 68 years old and is seen for screening. VIEWS: The views performed were: bilateral craniocaudal with tomosynthesis and bilateral mediolateral oblique with tomosynthesis. FILMS COMPARED: The present examination has been compared to prior imaging studies performed at [facility] on 12/01/2013, 12/08/2014, 12/20/2015 and 12/27/2016. This study has been interpreted with the assistance of computer-aided detection. MAMMOGRAM FINDINGS: There are scattered fibroglandular densities. There are benign appearing calcifications seen in both breasts. There are benign scattered densities in both breasts. There are no suspicious masses, suspicious calcifications, or new areas of architectural distortion. IMPRESSION: THERE IS NO MAMMOGRAPHIC EVIDENCE OF MALIGNANCY. A ROUTINE FOLLOW-UP MAMMOGRAM IN 1 YEAR IS RECOMMENDED. THE RESULTS OF THIS EXAM WERE SENT TO THE PATIENT. ACR BI-RADS Category 2 - Benign finding MAMMOGRAPHY NOTE: 1. A negative mammogram report should not delay a biopsy if a dominant of clinically suspicious mass is present. 2. Approximately 10% to 15% of breast cancers are not detected by mammography. 3. Adenosis and dense breasts may obscure an underlying neoplasm. Reported by: ARBEN BOYCE MD Electonically Signed: [id number]
== END 2019-04-04 14:32 | disposition home or self-care (01) ==
LOC: BICMAMMO 14:31
PROVIDERS: ATTEND Obstetrics & Gynecology
DX: Z12.31 Encounter for screening mammogram for malignant neoplasm of breast (principal)
CPT/HCPCS: 77063; 77067

== ENCOUNTER 2020-05-26 14:32 | Outpatient (CLI) | payer MEDICARE ==
[~2020-05-26 14:32] MED LIST: Magnevist 469MG/ML 20 ML VIAL ONE
--- NOTE | 2020-05-26 16:17 | MRI ---
MR of the abdomen with and without IV contrast INDICATION: 69-year-old female with epigastric abdominal pain and history of cholecystectomy and julio ia repair TECHNIQUE: Multiplanar multisequence MR images were obtained of the abdomen with and without contrast utilizing MRCP protocol. Contrast: 16 cc of MultiHance was utilized. COMPARISON: CT of the abdomen and pelvis dated January 12, 2016 FINDINGS: Liver: There is a 9 mm T2 hyperintense, T1 hypointense lesion within segment 6 of the right hepatic l obe with central nodular progressive enhancement suspicious for tiny hemangioma. There are small subcentimeter cyst within segment 6 and segment 4 a of the left hepatic lobe. Gallbladder and biliary system: The gallbladder is surgically absentThe common bile duct measures: 0 .8 cm. Pancreas: Normal appearing. Adrenal glands: Normal appearing. Kidneys: There is a subcentimeter cyst involving the superior pole of the right kidney and inferior p ole of the left kidney. The largest measures 6 mm.. Spleen: Normal in size and signal intensity. Retroperitoneum and peritoneal cavity: No free fluid or lymphadenopathy is evident. Osseous structures: There is levoscoliosis of the lumbar spine with mild dextroscoliosis of the thora columbar junction. There is scattered degenerative and osteoarthritic change present. IMPRESSION: 1. No suspicious abnormality demonstrated. 2. Cholecystectomy. 3. Small hepatic and bilateral renal cysts. There is a 9 mm hemangioma within segment 6 of the right hepatic lobe.
== END 2020-05-26 14:33 | disposition home or self-care (01) ==
LOC: BICMRI 14:32
PROVIDERS: ATTEND Physician Assistant Medical
DX: K52.9 Noninfective gastroenteritis and colitis, unspecified (principal); R10.13 Epigastric pain; N28.1 Cyst of kidney, acquired; K76.89 Other specified diseases of liver; D18.03 Hemangioma of intra-abdominal structures; Z90.49 Acquired absence of other specified parts of digestive tract
CPT/HCPCS: 74183; 82565

== ENCOUNTER 2020-06-14 13:30 | Outpatient (CLI) | payer MEDICARE, OTHER ==
--- NOTE | 2020-06-14 15:55 | MRI ---
MRI OF RIGHT FOREFOOT WITH AND WITHOUT CONTRAST: HISTORY: Pain. Foreign body. Infection. COMPARISON: Radiograph of the foot 2019. FINDINGS: BONES: There is fragmentation of the medial and lateral hallux sesamoids, greatest at the medial hallux sesa moid. There are abnormal sesamoid metatarsal degenerative changes. Mild proximal migration of the lateral sesamoid suggesting an old plantar plate injury. There is very faint loss of normal cortical signal of the metatarsal of the proximal head of the inte rphalangeal joint of the great toe. There is a faint marrow signal loss of vertebral body sequence w ith associated enhancement and edema. Moderately advanced degenerative changes of the mid foot with cartilage loss of the tarsometatarsal j oints as well as subcortical marrow changes. SOFT TISSUES: At the region of interest marker, there is some mild hyperenhancement of the adjacent soft tissues an d subcutaneous fat. There is also interval enhancement of the interphalangeal joint capsule of the g reat toe near the region of interest marker. No drainable abscess is appreciated. TENDONS: No significant tenosynovitis. MUSCLES: No pyomyositis. IMPRESSION: 1. Findings of low-grade osteomyelitis of the great toe at the proximal phalanx head at the interpha langeal joint with mild septic arthritis and adjacent inflammatory change of the dorsomedial soft tis sues at the region of interest marker. Given that there is only a faint area of cortical loss and th e marrow signal is not completely erased by T1 weighted non-fat-sat sequence, this could be sequelae of chronic osteomyelitis which is healing. 2. Fragmented medial and lateral hallux sesamoids of plantar foot injury. 3. Moderate advanced degenerative disease of the great toe metatarsophalangeal joint. 4. Moderate mid foot degenerative changes with multifocal full-thickness chondral loss and subcortic al marrow reactive changes. POS: OFF
== END 2020-06-14 13:31 | disposition home or self-care (01) ==
LOC: BICMRI 13:30
PROVIDERS: ATTEND Podiatrist Foot & Ankle Surgery
DX: L03.031 Cellulitis of right toe (principal); M19.071 Primary osteoarthritis, right ankle and foot; M86.9 Osteomyelitis, unspecified
CPT/HCPCS: A9579

== ENCOUNTER 2020-06-19 10:19 | Observation (INO) | payer MEDICARE, OTHER ==
[2020-06-19 11:26] LABS: #Basophils 0.1 thou/uL (0.0-0.2); #Eosinphils 0.3 thou/uL (0.0-0.7); #Lymphocytes 1.8 thou/uL (1.20-3.40); #Monocytes 0.4 thou/uL (0.11-0.59); #Neutrophils 2.9 thou/uL (1.40-6.50); %Basophils 1.1 % (0.0-1.0); %Eosinophils 5.9 % (0.0-10.0); Hemoglobin 14.9 g/dL (12.0-16.0); Mean Corpuscular HGB CONC 32.7 g/dL (32.0-36.0); Mean Corpuscular Hemoglobin 31.6 pg (27.0-31.0); Mean Corpuscular Volume 96.6 fL (78.0-98.0); Mean Platelet Volume 8.2 fL (7.4-10.4); Platelet Count 185 thou/uL (130-400); RBC Distribution Width 12.6 % (11.5-14.5); Red Blood Cell (RBC) Count 4.71 mill/uL (4.20-5.40); White Blood Cell (WBC) Count 5.5 thou/uL (4.8-10.8)
[2020-06-19 11:50] LABS: ALT (SGPT) 21 U/L (8-55); AST (SGOT) 24 U/L (5-34); Albumin 3.8 g/dL (3.4-4.8); Alkaline Phosphatase 82 U/L (40-110); Anion Gap 15 mmol/L (10-20); BUN (Urea Nitrogen) 14 mg/dL (9.8-20.1); Bilirubin, Total 0.2 mg/dL (0.2-1.2); Calc. Creatinine Clearance 0 mL/min (70-130); Calcium 8.8 mg/dL (7.8-10.44); Carbon Dioxide 22 mmol/L (23-31); Chloride 105 mmol/L (98-107); Globulin 3.1 g/dL (2.4-3.5); Glucose 82 mg/dL (80-115); Potassium 4.2 mmol/L (3.5-5.1); Protein, Total 6.9 g/dL (5.8-8.1); Sodium 138 mmol/L (136-145)
[2020-06-19] MEDS ORDERED: Ondansetron PF 4 MG/2 ML Vial IVP PRN (13:41)
[2020-06-19] MEDS ORDERED: Acetaminophen 325 MG TAB PO PRN (13:41)
[2020-06-19] MEDS ORDERED: traMADol HCl 50 MG TAB PO PRN (15:52)
[2020-06-19] MEDS ORDERED: Lisinopril 10 MG TAB PO SCH (16:15)
[2020-06-19] MEDS ORDERED: Lidocaine 1% (PF) 30 ML VIAL ONE (17:02)
[2020-06-19] MEDS: HYDROcodone/Acetaminophen 7.5/325 mg Tablet PO PRN ×2 (19:03→23:46)
[2020-06-19 19:15] VITALS: BMI 27.2
[2020-06-19] MEDS ORDERED: Bupivacaine 0.5% 10 ML VIAL FS SCH (19:30)
[2020-06-19] MEDS: Lisinopril 10 MG TAB PO SCH (23:48)
[2020-06-19 23:50] LABS: SARS-CoV-2 PCR by NAA Not Detected (NotDetected)
[2020-06-20] MEDS: HYDROcodone/Acetaminophen 7.5/325 mg Tablet PO PRN ×2 (04:24→08:45)
[2020-06-20] MEDS: Lisinopril 10 MG TAB PO SCH (08:39)
[2020-06-20] MEDS ORDERED: Enoxaparin Sodium 40 MG/0.4 ML SYRINGE SC SCH (09:00)
[2020-06-20 13:09] VITALS: BP 119/56; TEMP 97.9
[2020-06-23 11:38] LABS: Fungus Stain Final report (.)
[2020-07-19 14:13] LABS: Fungus Culture Final report (.)
== END 2020-06-20 13:50 | disposition home or self-care (01) ==
LOC: ERS 10:19 → T4-A 16:16 → INTOOBSV 16:16
PROVIDERS: ADMIT Internal Medicine; ATTEND Internal Medicine
DX: M86.671 Other chronic osteomyelitis, right ankle and foot (principal); M00.9 Pyogenic arthritis, unspecified; I10 Essential (primary) hypertension; F41.9 Anxiety disorder, unspecified; Z87.891 Personal history of nicotine dependence; Z79.82 Long term (current) use of aspirin; Z79.899 Other long term (current) drug therapy; Z91.048 Other nonmedicinal substance allergy status; Z96.651 Presence of right artificial knee joint; Z20.822 Contact with and (suspected) exposure to COVID-19
CPT/HCPCS: 73630; 80053; 83605; 85025; 87040; 87070; 87102; 87116; 87205; 87206 ×2; 99285; U0003; U0005; 36415; 87635; J1650; J2001; J3490

== ENCOUNTER 2020-08-16 09:48 | Outpatient (CLI) | payer MEDICARE | END 2020-08-16 09:49 | disposition home or self-care (01) | LOC: BICRAD 09:48 | PROVIDERS: ATTEND Internal Medicine Infectious Disease | DX: M86.671 Other chronic osteomyelitis, right ankle and foot (principal); R93.7 Abnormal findings on diagnostic imaging of other parts of musculoskeletal system ==

== ENCOUNTER 2020-10-06 13:29 | Outpatient (CLI) | payer MEDICARE | END 2020-10-06 13:30 | disposition home or self-care (01) | LOC: BICRAD 13:29 | PROVIDERS: ATTEND Podiatrist | DX: M79.671 Pain in right foot (principal) ==

== ENCOUNTER 2022-02-06 08:30 | Outpatient (CLI) | payer MEDICARE | END 2022-02-06 08:31 | disposition home or self-care (01) | LOC: BICMAMMO 08:30 | PROVIDERS: ATTEND Family Medicine | DX: Z13.820 Encounter for screening for osteoporosis (principal); M85.851 Other specified disorders of bone density and structure, right thigh; Z78.0 Asymptomatic menopausal state | CPT/HCPCS: 77080 ==

== ENCOUNTER 2022-06-30 14:08 | Outpatient (CLI) | payer MEDICARE ==
[2022-06-30 15:03] LABS: INR-International Normal Ratio 0.9; Prothrombin Time 9.8 sec (9.5-12.1)
[2022-06-30 15:04] LABS: #Eosinphils 0.2 10x3/uL (0.0-0.5); #Monocytes 0.5 10x3/uL (0.0-1.1); #Neutrophils 3.9 10x3/uL (1.5-8.4); %Basophils 0.4 % (0.0-2.0); %Eosinophils 2.6 % (0.0-6.0); %Lymphocytes 33.3 % (18.0-47.0); %Monocytes 7.2 % (0.0-10.0); %Neutrophils 56.4 % (40.0-75.0); Hemoglobin 13.3 g/dL (12.0-15.5); Mean Corpuscular HGB CONC 32.8 g/dL (32.0-36.0); Mean Corpuscular Hemoglobin 31.2 pg (27.0-33.0); Mean Corpuscular Volume 95.1 fl (81.6-98.3); Mean Platelet Volume 10.6 fl (7.4-10.4); Platelet Count 223 10x3/uL (150-450); RBC Distribution Width 13.2 % (11.5-14.5); Red Blood Cell (RBC) Count 4.26 10x6/uL (3.90-5.03); White Blood Cell (WBC) Count 6.9 10x3/uL (3.5-10.5)
[2022-06-30 15:17] LABS: Anion Gap 15 mmol/L (10-20); BUN (Urea Nitrogen) 20 mg/dL (9.8-20.1); Calc. Creatinine Clearance 0 mL/min (70-130); Calcium 9.3 mg/dL (7.8-10.44); Carbon Dioxide 24 mmol/L (23-31); Chloride 101 mmol/L (98-107); Estimated GFR 67; Glucose 84 mg/dL (83-110); Potassium 3.8 mmol/L (3.5-5.1); Sodium 136 mmol/L (136-145)
== END 2022-06-30 14:09 | disposition home or self-care (01) ==
LOC: LABBT 14:08
PROVIDERS: ATTEND Orthopaedic Surgery
DX: Z01.818 Encounter for other preprocedural examination (principal); M17.12 Unilateral primary osteoarthritis, left knee
CPT/HCPCS: 80048; 85025; 85610; 87081; 93005; 93010

== ENCOUNTER 2022-07-03 05:35 | Observation (INO) | payer MEDICARE ==
[2022-06-30 09:34] VITALS: BMI 28.8
[2022-07-03] MEDS ORDERED: Tranexamic Acid 1,000 MG/10 ML VIAL ONE (06:06)
[2022-07-03] MEDS ORDERED: Vancomycin (BATCH) 1.5 GRAM/300 ML BAG ONE (06:06)
[2022-07-03] MEDS ORDERED: Sodium Chloride 0.9% 100 ML ONE ×2 (06:06→06:58)
[2022-07-03] MEDS ORDERED: fentaNYL PF 100 MCG/2 ML SYRINGE ONE ×2 (06:14→07:30)
[2022-07-03] MEDS ORDERED: Scopolamine 1.5 mg/72 hour Patch ONE (06:30)
[2022-07-03] MEDS ORDERED: Midazolam HCl 2 mg/2 ml Vial ONE (06:30)
[2022-07-03] MEDS ORDERED: Bupivacaine PF 0.5% 30 ML VIAL ONE ×2 (06:32→08:16)
[2022-07-03] MEDS ORDERED: Lidocaine 1% PF 5 ML VIAL ONE (06:39)
[2022-07-03] MEDS ORDERED: Ketorolac Tromethamine 30 MG/ML VIAL ONE (06:39)
[2022-07-03] MEDS ORDERED: Dexamethasone 20 MG/5 ML VIAL ONE (06:39)
[2022-07-03] MEDS ORDERED: ePHEDrine 50 MG/ML VIAL ONE (06:39)
[2022-07-03] MEDS ORDERED: PROPOFOL 200 MG/20 ML VIAL ONE (06:39)
[2022-07-03] MEDS ORDERED: Bupivacaine HCl 0.5%/Epinephrine 1:200,000/PF 30 ml Vial ONE (06:39)
[2022-07-03] MEDS ORDERED: Ondansetron PF 4 MG/2 ML Vial ONE (06:39)
[2022-07-03] MEDS ORDERED: Promethazine HCl 25 MG/ML VIAL IM PRN ×3 (06:41→08:00)
[2022-07-03] MEDS ORDERED: Ketorolac Tromethamine 30 MG/ML VIAL IVP PRN (06:41)
[2022-07-03] MEDS ORDERED: Meperidine HCl/PF 25 MG/ML VIAL SLOW IVP PRN (06:41)
[2022-07-03] MEDS ORDERED: HYDROmorphone 2 MG/ML VIAL SLOW IVP PRN (06:41)
[2022-07-03] MEDS ORDERED: Ondansetron HCl/PF 4 MG/2 ML Vial IVP PRN (06:41)
[2022-07-03] MEDS ORDERED: Acetaminophen 325 MG TAB PO PRN (06:43)
[2022-07-03] MEDS ORDERED: Ondansetron PF 4 MG/2 ML Vial IVP PRN ×2 (06:43→08:00)
[2022-07-03] MEDS ORDERED: diphenhydrAMINE 25 MG CAP PO PRN (06:43)
[2022-07-03] MEDS ORDERED: Zolpidem Tartrate 5 MG TAB PO PRN ×2 (06:43→08:00)
[2022-07-03] MEDS ORDERED: HYDROcodone/Acetaminophen 10/325 mg Tablet PO PRN ×2 (06:43)
[2022-07-03] MEDS ORDERED: Famotidine 20 MG TAB PO PRN (06:44)
[2022-07-03] MEDS ORDERED: ALPRAZolam 0.5 MG TAB PO PRN (06:44)
[2022-07-03] MEDS ORDERED: CEFAZOLIN 2 GM VIAL ONE (06:58)
[2022-07-03 07:23] LABS: SARS-CoV-2 NAA Rapid Test Not Detected (NotDetected)
[2022-07-03] MEDS ORDERED: Fentanyl 100 MCG/2 ML VIAL IV PRN (07:52)
[2022-07-03] MEDS ORDERED: traMADol HCl 50 MG TAB PO PRN ×2 (08:00)
[2022-07-03] MEDS ORDERED: Ropivacaine 0.2% 550 ML 550 ML NERVE BLCK SCH (08:00)
[2022-07-03] MEDS ORDERED: Fentanyl 100 MCG/2 ML VIAL ONE (09:00)
[2022-07-03] MEDS ORDERED: Promethazine HCl 25 MG/ML VIAL ONE (09:14)
[2022-07-03] MEDS ORDERED: HYDROmorphone 0.5 MG/0.5 ML SYRINGE ONE (09:19)
[2022-07-03] MEDS: Sodium Chloride 0.9% 1,000 ML IV SCH ×2 (10:30→16:20)
[2022-07-03] MEDS: Aspirin 81 mg Enteric Coated Tablet PO SCH ×2 (10:34→20:53)
[2022-07-03] MEDS: Lisinopril/Hydrochlorothiazide 20 mg/12.5 mg Tablet PO SCH (10:34)
[2022-07-03] MEDS: Ketorolac Tromethamine 30 MG/ML VIAL IVP SCH ×3 (10:49→23:33)
[2022-07-03] MEDS ORDERED: Ketorolac Tromethamine 30 MG/ML VIAL IVP SCH (14:00)
[2022-07-03] MEDS: CEFAZOLIN 2 GM in Sodium Chloride 0.9% 100 ML IVPB SCH ×2 (14:21→20:58)
[2022-07-03] MEDS: HYDROcodone/Acetaminophen 10/325 mg Tablet PO PRN ×2 (14:22→20:56)
[2022-07-03] MEDS ORDERED: Estradiol 1 MG TAB PO SCH (21:00)
[2022-07-03] MEDS ORDERED: Citalopram 20 MG TAB PO SCH (21:00)
[2022-07-03] MEDS ORDERED: Ezetimibe 10 MG TAB PO SCH (21:00)
[2022-07-03] MEDS ORDERED: Melatonin 3 MG TAB PO SCH (21:00)
[2022-07-03] MEDS ORDERED: Lisinopril 20 MG TAB PO SCH (21:00)
[2022-07-03] MEDS ORDERED: Amlodipine 5 MG TAB PO SCH (21:00)
[2022-07-04] MEDS: Sodium Chloride 0.9% 1,000 ML IV SCH ×2 (02:48→13:34)
[2022-07-04] MEDS: Ketorolac Tromethamine 30 MG/ML VIAL IVP SCH ×2 (05:36→11:15)
[2022-07-04] MEDS: HYDROcodone/Acetaminophen 10/325 mg Tablet PO PRN ×3 (05:37→15:01)
[2022-07-04 06:54] LABS: Hemoglobin 11.2 g/dL (12.0-16.0); Mean Corpuscular HGB CONC 32.8 g/dL (32.0-36.0); Mean Corpuscular Hemoglobin 33.1 pg (27.0-31.0); Mean Platelet Volume 8.3 fL (7.4-10.4); Platelet Count 171 10x3/uL (130-400); RBC Distribution Width 12.5 % (11.5-14.5); Red Blood Cell (RBC) Count 3.39 mill/uL (4.20-5.40); White Blood Cell (WBC) Count 8.2 10x3/uL (4.8-10.8)
[2022-07-04] MEDS: Aspirin 81 mg Enteric Coated Tablet PO SCH (08:34)
[2022-07-04] MEDS: Lisinopril/Hydrochlorothiazide 20 mg/12.5 mg Tablet PO SCH (08:36)
[2022-07-04] MEDS ORDERED: Senokot S 8.6-50 MG TAB PO SCH (09:00)
[2022-07-04] MEDS ORDERED: Ferrous Gluconate 324 MG TAB PO SCH (09:00)
[2022-07-04] MEDS ORDERED: Multivitamin W/ Minerals 1 TAB PO SCH (09:00)
[2022-07-04 12:55] VITALS: BP 114/68; TEMP 98.5
== END 2022-07-04 15:30 | disposition home health service (06) ==
LOC: SDC 05:35 → SJJU 10:08
PROVIDERS: ADMIT Orthopaedic Surgery; ATTEND Orthopaedic Surgery
PROC: 0SRD0J9 Replacement of Left Knee Joint with Synthetic Substitute, Cemented, Open Approach (ICD-10-PCS; principal; 2022-07-03)
DX: M17.12 Unilateral primary osteoarthritis, left knee (principal); M11.262 Other chondrocalcinosis, left knee; I10 Essential (primary) hypertension; K21.9 Gastro-esophageal reflux disease without esophagitis; Z87.891 Personal history of nicotine dependence; Z79.82 Long term (current) use of aspirin; Z79.899 Other long term (current) drug therapy; Z88.8 Allergy status to other drugs, medicaments and biological substances; Z91.048 Other nonmedicinal substance allergy status; Z96.651 Presence of right artificial knee joint; Z20.822 Contact with and (suspected) exposure to COVID-19
CPT/HCPCS: 20985; 27447; 73560; 85027; 96365; 96375; 96376 ×2; 97110 ×2; 97116 ×2; 97530; A4306; C1713; C1776; G0378 ×2; J3370; U0002; 36415; J1100; J1170; J1885; J2250; J2405; J2550; J2704; J2795; J3010; J3490; S0020